=== PATIENT | male | born 1980 | race African-American/Black ===

== ENCOUNTER 2018-03-19 12:57 | Inpatient (IN) | payer MEDICAID, OTHER ==
[~2018-03-19] VITALS: Ht 182.9 cm; Wt 159.2 kg
[2018-03-19 14:45] LABS: Basophils # (auto) 0.1 uL; Basophils % (auto) 0.9 % (0.0-2.0); Eosinophils # (auto) 0 uL; Eosinophils % (auto) 0.2 % (0.0-7.0); Hematocrit 40.9 % (41.0-53.0); Hemoglobin 13.8 g/dL (13.5-17.5); Lymphocytes # (auto) 1.1 uL; Lymphocytes % (auto) 17.4 % (10.0-50.0); Mean Corpuscular Hgb Conc. 33.6 g/dL (32.0-36.0); Mean Corpuscular Volume 86.3 fL (80.0-100.0); Monocytes # (auto) 0.4 uL; Monocytes % (auto) 6.6 % (0.0-12.0); Neutrophils # (auto) 4.6 uL; Neutrophils % (auto) 74.9 % (37.0-80.0); Nucleated Red Blood Cells % 0.1 %; Platelet Count (auto) 239 10^3/uL (140-450); Red Blood Cells 4.74 10^6/uL (4.5-5.90); Red Cell Distribution Width 13.1 % (11.8-14.3); White Blood Cell 6.1 10^3/uL (4.4-10.8)
[2018-03-19 15:00] LABS: Albumin 3.4 g/dL (3.4-5.0); BUN/Creatinine Ratio 11.8; Bilirubin, Total 0.5 mg/dL (0.2-1.0); Calcium 8.6 mg/dL (8.5-10.1); Magnesium 2.1 mg/dL (1.6-2.6); Potassium 3.7 mmol/L (3.5-5.1)
[2018-03-19 15:03] LABS: Salicylate < 1.7 mg/dL (2.8-20.0)
[2018-03-19 15:15] LABS: Acetaminophen < 2.0 ug/mL (10-30)
[2018-03-19 15:29] LABS: Amphetamine Screen, Urine NEGATIVE (NEGATIVE); Barbiturate Scree,Urine NEGATIVE (NEGATIVE); Benzodiazephine Screen, Urine NEGATIVE (NEGATIVE); Cannabinoid Screen, Urine NEGATIVE (NEGATIVE); Cocaine Screen, Urine NEGATIVE (NEGATIVE); Opiate Scree,Urine NEGATIVE (NEGATIVE); Phencyclidine Screen, Urine NEGATIVE (NEGATIVE)
[2018-03-19 15:42] LABS: Urine Amorphous Crystal FEW /hpf (None Seen); Urine Bacteria FEW /hpf (None Seen); Urine Blood Negative /uL (Negative); Urine Mucus MODERATE (None Seen); Urine Specific Gravity 1.035 (1.001-1.035); Urine WBC 3 /hpf (0 - 3)
[2018-03-19] MEDS ORDERED: HYDROcodone-ACET 5/325MG TAB PO PRN (18:00)
[2018-03-19] MEDS ORDERED: MORPHINE SULF INJ 2 MG/ML SYRINGE 1ML IV PRN ×2 (18:00)
[2018-03-19] MEDS ORDERED: ONDANSETRON HCL 4 MG/2 ML VIAL IV PRN (18:00)
[2018-03-19] MEDS ORDERED: LORazepam 2MG/ML-1ML VIAL IV PRN (18:00)
[2018-03-19] MEDS ORDERED: DOCUSATE SOD 100 MG CAP PO PRN (18:00)
[2018-03-19] MEDS ORDERED: cefTRIAXone 1GM/10ml IVPUSH 10 ML IV ONE (18:00)
[2018-03-19] MEDS ORDERED: NITROGLYCERIN 0.4 MG SL TAB SL PRN (18:00)
[2018-03-19] MEDS ORDERED: DEXTROSE (50%) 50ML SYRG IV PRN (18:00)
[2018-03-19 21:45] VITALS: BP 125/74
[2018-03-19] MEDS: FAMOTIDINE 20 MG TAB PO SCH (21:57)
[2018-03-19] MEDS: SODIUM CHLOR 0.9% PF (SALINE LOCK) 10ML VIAL/SYR IV SCH (21:58)
[2018-03-19] MEDS: InsuLIN REG 1unit/0.01ml Soln (100units/ml) SC SCH (22:00)
[2018-03-19] MEDS: ACCU-CHEK COMFORT CURVE STRIP VI SCH (22:21)
[2018-03-20] MEDS ORDERED: CITA10TA59 PO (01:06)
[2018-03-20 05:28] VITALS: BP 138/87
[2018-03-20] MEDS: SODIUM CHLOR 0.9% PF (SALINE LOCK) 10ML VIAL/SYR IV SCH ×3 (06:29→21:09)
[2018-03-20] MEDS: InsuLIN REG 1unit/0.01ml Soln (100units/ml) SC SCH ×4 (06:29→21:10)
[2018-03-20] MEDS: ACCU-CHEK COMFORT CURVE STRIP VI SCH ×4 (06:29→21:09)
[2018-03-20 06:38] LABS: Basophils # (auto) 0.1 uL; Basophils % (auto) 1.1 % (0.0-2.0); Eosinophils # (auto) 0 uL; Eosinophils % (auto) 0.1 % (0.0-7.0); Hematocrit 38.6 % (41.0-53.0); Hemoglobin 12.9 g/dL (13.5-17.5); Lymphocytes # (auto) 1.3 uL; Lymphocytes % (auto) 23.3 % (10.0-50.0); Mean Corpuscular Hemoglobin 28.8 pg (28.0-32.0); Mean Corpuscular Hgb Conc. 33.4 g/dL (32.0-36.0); Mean Corpuscular Volume 86.5 fL (80.0-100.0); Monocytes # (auto) 0.6 uL; Monocytes % (auto) 10.2 % (0.0-12.0); Neutrophils # (auto) 3.6 uL; Neutrophils % (auto) 65.3 % (37.0-80.0); Nucleated Red Blood Cells % 0.2 %; Platelet Count (auto) 215 10^3/uL (140-450); Red Blood Cells 4.47 10^6/uL (4.5-5.90); Red Cell Distribution Width 13.3 % (11.8-14.3); White Blood Cell 5.5 10^3/uL (4.4-10.8)
[2018-03-20 07:03] LABS: Albumin 3.2 g/dL (3.4-5.0); BUN/Creatinine Ratio 11.8; Bilirubin, Total 0.4 mg/dL (0.2-1.0); Calcium 8.5 mg/dL (8.5-10.1); Potassium 3.5 mmol/L (3.5-5.1); Total Protein 7.5 g/dL (6.4-8.2)
[2018-03-20 07:30] VITALS: BP 134/85
[2018-03-20] MEDS: MULTIPLE VITAMIN TAB PO SCH (10:38)
[2018-03-20] MEDS: cefTRIAXone 1GM/10ml IVPUSH 10 ML IV SCH (10:38)
[2018-03-20] MEDS: FAMOTIDINE 20 MG TAB PO SCH ×2 (10:39→21:06)
[2018-03-20 12:41] VITALS: BP 131/63
[2018-03-20] MEDS ORDERED: METF-372 PO (14:26)
[2018-03-20 16:52] VITALS: BP 122/78
[2018-03-20] MEDS: metFORMIN HYDROCHLORIDE 500 MG TAB PO SCH (18:00)
[2018-03-20 22:00] VITALS: BP 127/66
[2018-03-21] VITALS (7 sets, daily range): BP systolic 113–126; BP diastolic 52–79
[2018-03-21] MEDS: SODIUM CHLOR 0.9% PF (SALINE LOCK) 10ML VIAL/SYR IV SCH ×3 (05:46→21:13)
[2018-03-21] MEDS: InsuLIN REG 1unit/0.01ml Soln (100units/ml) SC SCH ×4 (06:00→21:15)
[2018-03-21] MEDS: ACCU-CHEK COMFORT CURVE STRIP VI SCH ×4 (06:00→21:14)
[2018-03-21] MEDS: metFORMIN HYDROCHLORIDE 500 MG TAB PO SCH ×2 (06:08→17:35)
[2018-03-21 07:22] LABS: BUN/Creatinine Ratio 13.5; Calcium 8.2 mg/dL (8.5-10.1); Potassium 3.5 mmol/L (3.5-5.1)
[2018-03-21] MEDS: MULTIPLE VITAMIN TAB PO SCH (09:48)
[2018-03-21] MEDS: cefTRIAXone 1GM/10ml IVPUSH 10 ML IV SCH (09:48)
[2018-03-21] MEDS: FAMOTIDINE 20 MG TAB PO SCH ×2 (09:48→21:12)
[2018-03-21] MEDS: ACETAMINOPHEN 325 MG TAB PO PRN (21:12)
[2018-03-22] MEDS: ACETAMINOPHEN 325 MG TAB PO PRN (02:01)
[2018-03-22 05:00] VITALS: BP 115/62
[2018-03-22] MEDS: metFORMIN HYDROCHLORIDE 500 MG TAB PO SCH ×2 (05:46→17:54)
[2018-03-22] MEDS: SODIUM CHLOR 0.9% PF (SALINE LOCK) 10ML VIAL/SYR IV SCH ×3 (05:47→21:49)
[2018-03-22] MEDS: ACCU-CHEK COMFORT CURVE STRIP VI SCH ×4 (05:47→21:51)
[2018-03-22] MEDS: InsuLIN REG 1unit/0.01ml Soln (100units/ml) SC SCH ×4 (05:47→21:51)
[2018-03-22 09:00] VITALS: BP 130/80
[2018-03-22] MEDS: MULTIPLE VITAMIN TAB PO SCH (09:22)
[2018-03-22] MEDS: FAMOTIDINE 20 MG TAB PO SCH ×2 (09:22→21:49)
[2018-03-22 13:00] VITALS: BP 132/82
[2018-03-22 16:00] VITALS: BP 125/68
[2018-03-22 17:00] VITALS: BP_SYST 125; BP_SYST 138; BP_DIAS 68; BP_DIAS 88
[2018-03-22 22:00] VITALS: BP 121/78
[2018-03-23 05:00] VITALS: BP 111/73
[2018-03-23] MEDS: InsuLIN REG 1unit/0.01ml Soln (100units/ml) SC SCH ×4 (06:15→21:49)
[2018-03-23] MEDS: SODIUM CHLOR 0.9% PF (SALINE LOCK) 10ML VIAL/SYR IV SCH ×3 (06:16→21:44)
[2018-03-23] MEDS: ACCU-CHEK COMFORT CURVE STRIP VI SCH ×4 (06:16→21:49)
[2018-03-23] MEDS: metFORMIN HYDROCHLORIDE 500 MG TAB PO SCH ×2 (06:48→17:52)
[2018-03-23] MEDS: MULTIPLE VITAMIN TAB PO SCH (09:18)
[2018-03-23] MEDS: FAMOTIDINE 20 MG TAB PO SCH ×2 (09:18→21:44)
[2018-03-23 09:52] VITALS: BP 123/72
[2018-03-23 13:00] VITALS: BP 122/72
[2018-03-23 16:34] VITALS: BP 109/61
[2018-03-23 21:17] VITALS: BP 126/69
[2018-03-24] MEDS ORDERED: CALCIUM CARB 500 MG CHEW TAB PO ONE (04:30)
[2018-03-24 05:07] VITALS: BP 126/62
[2018-03-24] MEDS: SODIUM CHLOR 0.9% PF (SALINE LOCK) 10ML VIAL/SYR IV SCH ×3 (06:45→21:58)
[2018-03-24] MEDS: ACCU-CHEK COMFORT CURVE STRIP VI SCH ×4 (06:46→21:59)
[2018-03-24] MEDS: metFORMIN HYDROCHLORIDE 500 MG TAB PO SCH ×2 (06:46→17:31)
[2018-03-24] MEDS: InsuLIN REG 1unit/0.01ml Soln (100units/ml) SC SCH ×4 (06:46→21:59)
[2018-03-24 09:00] VITALS: BP 104/50
[2018-03-24] MEDS: FAMOTIDINE 20 MG TAB PO SCH ×2 (09:47→21:58)
[2018-03-24] MEDS: MULTIPLE VITAMIN TAB PO SCH (09:47)
[2018-03-24 13:00] VITALS: BP 120/61
[2018-03-24 17:00] VITALS: BP 132/87
[2018-03-24 21:33] VITALS: BP 121/65
[2018-03-25 05:00] VITALS: BP 123/69
[2018-03-25] MEDS: SODIUM CHLOR 0.9% PF (SALINE LOCK) 10ML VIAL/SYR IV SCH ×3 (06:30→22:23)
[2018-03-25] MEDS: metFORMIN HYDROCHLORIDE 500 MG TAB PO SCH ×2 (06:30→17:45)
[2018-03-25] MEDS: InsuLIN REG 1unit/0.01ml Soln (100units/ml) SC SCH ×4 (06:32→22:00)
[2018-03-25] MEDS: ACCU-CHEK COMFORT CURVE STRIP VI SCH ×4 (06:33→22:28)
[2018-03-25] MEDS: MULTIPLE VITAMIN TAB PO SCH (09:58)
[2018-03-25] MEDS: FAMOTIDINE 20 MG TAB PO SCH ×2 (09:58→22:22)
[2018-03-25 22:00] VITALS: BP 124/75
[2018-03-26 05:00] VITALS: BP 137/81
[2018-03-26] MEDS: SODIUM CHLOR 0.9% PF (SALINE LOCK) 10ML VIAL/SYR IV SCH ×3 (06:37→22:00)
[2018-03-26] MEDS: metFORMIN HYDROCHLORIDE 500 MG TAB PO SCH ×2 (06:37→18:15)
[2018-03-26] MEDS: ACCU-CHEK COMFORT CURVE STRIP VI SCH ×4 (06:38→22:00)
[2018-03-26] MEDS: InsuLIN REG 1unit/0.01ml Soln (100units/ml) SC SCH ×4 (06:38→22:00)
[2018-03-26 08:57] VITALS: BP 138/67
[2018-03-26] MEDS: MULTIPLE VITAMIN TAB PO SCH (10:17)
[2018-03-26] MEDS: FAMOTIDINE 20 MG TAB PO SCH ×2 (10:17→21:18)
[2018-03-26 13:18] VITALS: BP 133/83
[2018-03-26] MEDS: ACETAMINOPHEN 325 MG TAB PO PRN (14:07)
[2018-03-26 17:00] VITALS: BP 119/61
[2018-03-26 21:30] VITALS: BP 138/78
[2018-03-27] MEDS: SODIUM CHLOR 0.9% PF (SALINE LOCK) 10ML VIAL/SYR IV SCH ×3 (00:02→21:23)
[2018-03-27 04:53] VITALS: BP 132/84
[2018-03-27] MEDS: InsuLIN REG 1unit/0.01ml Soln (100units/ml) SC SCH ×4 (05:52→21:21)
[2018-03-27] MEDS: ACCU-CHEK COMFORT CURVE STRIP VI SCH ×4 (05:52→21:21)
[2018-03-27] MEDS: metFORMIN HYDROCHLORIDE 500 MG TAB PO SCH ×2 (06:17→17:46)
[2018-03-27] MEDS: ACETAMINOPHEN 325 MG TAB PO PRN ×2 (08:13→21:22)
[2018-03-27 09:00] VITALS: BP 134/75
[2018-03-27] MEDS: MULTIPLE VITAMIN TAB PO SCH (10:13)
[2018-03-27] MEDS: FAMOTIDINE 20 MG TAB PO SCH ×2 (10:13→21:21)
[2018-03-27] MEDS ORDERED: LORazepam 2MG/ML-1ML VIAL IV PRN (12:45)
[2018-03-27 13:00] VITALS: BP 133/87
[2018-03-27 17:00] VITALS: BP 142/72
[2018-03-27 21:30] VITALS: BP 126/65
[2018-03-28 05:00] VITALS: BP 140/78
[2018-03-28] MEDS: InsuLIN REG 1unit/0.01ml Soln (100units/ml) SC SCH ×4 (06:27→21:02)
[2018-03-28] MEDS: SODIUM CHLOR 0.9% PF (SALINE LOCK) 10ML VIAL/SYR IV SCH ×3 (06:27→21:01)
[2018-03-28] MEDS: ACCU-CHEK COMFORT CURVE STRIP VI SCH ×4 (06:27→21:02)
[2018-03-28] MEDS: metFORMIN HYDROCHLORIDE 500 MG TAB PO SCH ×2 (06:27→16:55)
[2018-03-28] MEDS: ACETAMINOPHEN 325 MG TAB PO PRN ×2 (08:25→16:58)
[2018-03-28] MEDS: ONDANSETRON ODT 4 MG TAB PO PRN (08:26)
[2018-03-28 08:49] VITALS: BP 130/81
[2018-03-28] MEDS: FAMOTIDINE 20 MG TAB PO SCH ×2 (09:35→21:02)
[2018-03-28] MEDS: MULTIPLE VITAMIN TAB PO SCH (09:35)
[2018-03-28 13:00] VITALS: BP 127/75
[2018-03-28 17:00] VITALS: BP 137/80
[2018-03-28 22:00] VITALS: BP 144/78
[2018-03-29] MEDS: ACETAMINOPHEN 325 MG TAB PO PRN (00:03)
[2018-03-29 04:57] VITALS: BP 131/77
[2018-03-29] MEDS: SODIUM CHLOR 0.9% PF (SALINE LOCK) 10ML VIAL/SYR IV SCH ×3 (06:00→21:46)
[2018-03-29] MEDS: metFORMIN HYDROCHLORIDE 500 MG TAB PO SCH ×2 (06:34→18:21)
[2018-03-29] MEDS: InsuLIN REG 1unit/0.01ml Soln (100units/ml) SC SCH ×4 (06:34→21:55)
[2018-03-29] MEDS: ACCU-CHEK COMFORT CURVE STRIP VI SCH ×4 (06:34→21:45)
[2018-03-29 09:05] VITALS: BP 129/62
[2018-03-29] MEDS: MULTIPLE VITAMIN TAB PO SCH (10:44)
[2018-03-29] MEDS: FAMOTIDINE 20 MG TAB PO SCH ×2 (10:45→21:45)
[2018-03-29 13:00] VITALS: BP 136/85
[2018-03-29 16:59] VITALS: BP 126/70
[2018-03-29 22:01] VITALS: BP 133/75
[2018-03-30 04:48] VITALS: BP 133/73
[2018-03-30] MEDS: SODIUM CHLOR 0.9% PF (SALINE LOCK) 10ML VIAL/SYR IV SCH ×3 (06:00→21:23)
[2018-03-30] MEDS: ACCU-CHEK COMFORT CURVE STRIP VI SCH ×4 (06:30→21:22)
[2018-03-30] MEDS: InsuLIN REG 1unit/0.01ml Soln (100units/ml) SC SCH ×4 (06:37→21:22)
[2018-03-30] MEDS: metFORMIN HYDROCHLORIDE 500 MG TAB PO SCH ×4 (06:37→21:24)
[2018-03-30 09:00] VITALS: BP 151/84
[2018-03-30] MEDS: FAMOTIDINE 20 MG TAB PO SCH ×2 (09:29→21:22)
[2018-03-30] MEDS: MULTIPLE VITAMIN TAB PO SCH (09:29)
[2018-03-30 13:00] VITALS: BP 142/78
[2018-03-30 17:00] VITALS: BP 136/88
[2018-03-30 20:00] VITALS: BP 158/86
[2018-03-30 21:36] VITALS: BP 158/86
[2018-03-31 05:31] VITALS: BP 146/84
[2018-03-31] MEDS: SODIUM CHLOR 0.9% PF (SALINE LOCK) 10ML VIAL/SYR IV SCH ×3 (06:00→22:14)
[2018-03-31] MEDS: InsuLIN REG 1unit/0.01ml Soln (100units/ml) SC SCH ×4 (06:53→22:00)
[2018-03-31] MEDS: ACCU-CHEK COMFORT CURVE STRIP VI SCH ×4 (06:53→22:15)
[2018-03-31] MEDS: metFORMIN HYDROCHLORIDE 500 MG TAB PO SCH ×2 (06:54→17:40)
[2018-03-31 08:00] VITALS: BP 119/78
[2018-03-31] MEDS: MULTIPLE VITAMIN TAB PO SCH (09:42)
[2018-03-31] MEDS: FAMOTIDINE 20 MG TAB PO SCH ×2 (09:42→22:15)
[2018-03-31 12:00] VITALS: BP 131/79
[2018-03-31 16:00] VITALS: BP 139/72
[2018-04-01 05:00] VITALS: BP 138/85
[2018-04-01] MEDS: SODIUM CHLOR 0.9% PF (SALINE LOCK) 10ML VIAL/SYR IV SCH ×3 (06:23→22:30)
[2018-04-01] MEDS: InsuLIN REG 1unit/0.01ml Soln (100units/ml) SC SCH ×4 (07:00→22:00)
[2018-04-01] MEDS: ACCU-CHEK COMFORT CURVE STRIP VI SCH ×4 (07:00→22:29)
[2018-04-01] MEDS: metFORMIN HYDROCHLORIDE 500 MG TAB PO SCH ×2 (07:55→18:14)
[2018-04-01 09:00] VITALS: BP 149/91
[2018-04-01] MEDS: FAMOTIDINE 20 MG TAB PO SCH ×2 (10:06→22:30)
[2018-04-01] MEDS: MULTIPLE VITAMIN TAB PO SCH (10:06)
[2018-04-01 12:00] VITALS: BP 140/88
[2018-04-01 17:12] VITALS: BP 160/100
[2018-04-01] MEDS ORDERED: TORSEMIDE 20 MG TAB PO SCH (18:00)
[2018-04-01 22:00] VITALS: BP 136/77
[2018-04-02 05:00] VITALS: BP 140/84
[2018-04-02] MEDS: SODIUM CHLOR 0.9% PF (SALINE LOCK) 10ML VIAL/SYR IV SCH ×3 (06:43→19:21)
[2018-04-02] MEDS: InsuLIN REG 1unit/0.01ml Soln (100units/ml) SC SCH ×4 (06:54→22:00)
[2018-04-02] MEDS: metFORMIN HYDROCHLORIDE 500 MG TAB PO SCH ×2 (06:54→17:45)
[2018-04-02] MEDS: ACCU-CHEK COMFORT CURVE STRIP VI SCH ×4 (06:54→22:15)
[2018-04-02 08:59] VITALS: BP 127/63
[2018-04-02] MEDS: MULTIPLE VITAMIN TAB PO SCH (09:37)
[2018-04-02] MEDS: FAMOTIDINE 20 MG TAB PO SCH ×2 (09:37→22:15)
[2018-04-02 13:00] VITALS: BP 144/78
[2018-04-02 17:01] VITALS: BP 146/73
[2018-04-02] MEDS: ACETAMINOPHEN 325 MG TAB PO PRN ×2 (19:42→22:15)
[2018-04-02 21:50] VITALS: BP 133/69
[2018-04-03] MEDS: metFORMIN HYDROCHLORIDE 500 MG TAB PO SCH ×2 (06:47→17:35)
[2018-04-03] MEDS: InsuLIN REG 1unit/0.01ml Soln (100units/ml) SC SCH ×4 (06:47→21:52)
[2018-04-03] MEDS: ACCU-CHEK COMFORT CURVE STRIP VI SCH ×4 (06:48→21:52)
[2018-04-03 09:00] VITALS: BP 157/98
[2018-04-03] MEDS: MULTIPLE VITAMIN TAB PO SCH (09:12)
[2018-04-03] MEDS: FAMOTIDINE 20 MG TAB PO SCH ×2 (09:12→21:51)
[2018-04-03 13:00] VITALS: BP 155/90
[2018-04-03] MEDS: SODIUM CHLOR 0.9% PF (SALINE LOCK) 10ML VIAL/SYR IV SCH ×2 (14:00→21:51)
[2018-04-03] MEDS: ACETAMINOPHEN 325 MG TAB PO PRN (15:22)
[2018-04-03] MEDS: ONDANSETRON ODT 4 MG TAB PO PRN (16:40)
[2018-04-03 17:27] VITALS: BP 152/99
[2018-04-03 21:59] VITALS: BP 146/82
[2018-04-04] MEDS: SODIUM CHLOR 0.9% PF (SALINE LOCK) 10ML VIAL/SYR IV SCH ×3 (00:22→21:45)
[2018-04-04 04:56] VITALS: BP 141/80
[2018-04-04] MEDS: InsuLIN REG 1unit/0.01ml Soln (100units/ml) SC SCH ×4 (07:00→21:44)
[2018-04-04] MEDS: ACCU-CHEK COMFORT CURVE STRIP VI SCH ×4 (07:03→21:45)
[2018-04-04] MEDS: metFORMIN HYDROCHLORIDE 500 MG TAB PO SCH ×2 (07:03→18:02)
[2018-04-04] MEDS: FAMOTIDINE 20 MG TAB PO SCH ×2 (08:48→21:45)
[2018-04-04] MEDS: MULTIPLE VITAMIN TAB PO SCH (08:48)
[2018-04-04 08:50] VITALS: BP 145/75
[2018-04-04 13:00] VITALS: BP 160/89
[2018-04-04 17:00] VITALS: BP 144/83
[2018-04-04 22:00] VITALS: BP 116/65
[2018-04-05 05:00] VITALS: BP 137/79
[2018-04-05] MEDS: SODIUM CHLOR 0.9% PF (SALINE LOCK) 10ML VIAL/SYR IV SCH (05:00)
[2018-04-05] MEDS: InsuLIN REG 1unit/0.01ml Soln (100units/ml) SC SCH (06:59)
[2018-04-05] MEDS: metFORMIN HYDROCHLORIDE 500 MG TAB PO SCH (06:59)
[2018-04-05] MEDS: ACCU-CHEK COMFORT CURVE STRIP VI SCH (07:06)
[2018-04-05 08:44] VITALS: BP 146/78
== END 2018-04-05 09:36 | DRG 812 ==
LOC: ER 13:19 → TELE 13:20 → TELE-WESTW 21:45 → WEST WING 03-28 20:28
PROVIDERS: ADMIT Internal Medicine; ATTEND Internal Medicine
DX: T43.222A Poisoning by selective serotonin reuptake inhibitors, intentional self-harm, initial encounter (principal); E66.01 Morbid (severe) obesity due to excess calories; X78.9XXA Intentional self-harm by unspecified sharp object, initial encounter; N39.0 Urinary tract infection, site not specified; F32.9 Major depressive disorder, single episode, unspecified; F41.9 Anxiety disorder, unspecified; S31.114A Laceration without foreign body of abdominal wall, left lower quadrant without penetration into peritoneal cavity, initial encounter; E11.9 Type 2 diabetes mellitus without complications; F43.10 Post-traumatic stress disorder, unspecified; Z91.5 Personal history of self-harm; Z82.49 Family history of ischemic heart disease and other diseases of the circulatory system; Z79.899 Other long term (current) drug therapy; Z68.42 Body mass index [BMI] 45.0-49.9, adult; Y93.89 Activity, other specified; Y92.89 Other specified places as the place of occurrence of the external cause; Y99.8 Other external cause status
CPT/HCPCS: 36415; 71045; 80048; 80053; 80061; 80307; 80320; 80329; 81001; 82962; 83036; 83735; 84443; 85025; 87081; 87086; 93005; 94761; 96374; 99291; A6257; J0696; Q0162

== ENCOUNTER 2025-04-07 11:35 | Inpatient (IN) | payer OTHER, MEDICAID ==
[~2025-04-07] VITALS: Ht 177.8 cm; Wt 169.0 kg
[~2025-04-07 11:35] MED LIST: CITA10TA8 PO; METF-372 PO
--- NOTE | 2025-04-07 12:07 | ED.PDOC ---
HPI Comments 45y M history of type 2 diabetes, hypertension, dyslipidemia and cardiac disease who presents to the ED for chief complaint of chest pain. Pt states he has been having L sided chest pain since the past 4 days. Pt states the pain is intermittent, radiating to the L upper back, pressure like in nature, with noted shortness of breath, nausea and dyspnea on exertion, and no relieving factors. Pt states he was seen by math and physics instructor recently and told he has "weak heart." Pt also states he hit his R big toe 3 days prior while helping move a couch and states he had noted bleeding at the time but since then bleeding as resolved. Pt states he wants to be evaluated for any possible wound on the R big toe due to history of DM. Pt in the ED, otherwise has noted BP of 145/83 and 02 sat of 93% on room air but otherwise has stable vitals of RR 20 and heart rate of 80. Pt otherwise denies any other symptoms at this time. Pt has noted history of DM, HTN, HLD and 2x prior CVA's. Chief Complaint: Chest Pain Time Seen by MD: 12:03 Primary Care Provider: NONE Reviewed Notes: Medications, Allergies Allergies: Coded Allergies: NO KNOWN ALLERGIES (Unverified , 03/19/18) Home Meds Active Scripts Metformin Hydrochloride (Metformin Hcl) 1,000 Mg Tab, 1 TAB PO BID, #60 TAB Prov:BRIAN LOWE MD 03/20/18 Reported Medications Citalopram Hydrobromide (Celexa) 10 Mg Tab, 20 MG PO DAILY, TAB 03/20/18 Information Source: Patient Mode of Arrival: Ambulatory Past Medical History PAST MEDICAL HISTORY: Anxiety, Depression, DM, High Lipids, HTN Past Medical History (Other): Heart disease, CVA, Morbid obesity Family History Family History: No family hx of HTN Social History Smoker: Non-Smoker Alcohol: Rarely Drugs: Denies Drug Use Lives In: Home All Other Systems: Reviewed and Negative (see HPI) Physical Exam General Appearance: No Apparent Distress, Obese HEENT: Other (Pupils and face symmetric. Moist mucous membranes.) Neck: Full Range of Motion, Normal Inspection Respiratory: Lungs Clear, No Accessory Muscle Use, No Respiratory Distress, Normal Breath Sounds Cardiovascular: No Edema, No JVD, Regular Rate/Rhythm Breast Exam: Deferred Gastrointestinal: Non Tender, Soft Genitalia: Deferred Pelvic: Deferred Rectal: Deferred Extremities: Non-tender (Right great toe dried blood under nail with minimal erythema of the tip of the toe. No tenderness, edema or discharge.), No pedal edema, Other Neurologic: Alert (Oriented x4), Normal Affect, Normal Mood, Other (Ambulatory with cane) Cerebellar Function: NOT DONE Reflexes: NOT DONE Skin: Dry, Normal Color, Warm Lymphatic: NOT DONE EKG EKG : Comments Sinus rhythm, rate 83, normal intervals, left axis deviation, old anteroseptal infarct, lateral T inversion Was a procedure done? Was a procedure done?: No CP Differential Dx Differential Diagnosis: Angina, Anxiety / Panic Attack, Electrolyte Disorder, Heart Failure, UT, Pulmonary Embolus Differential Diagnosis: CHF Differential Diagnosis: Angina, Chest Wall Pain, Esophageal reflux/spasm, Gastritis, Myocardial Infarction, Pericarditis, Pneumonia X-Ray, Labs, Meds, VS Vital Signs Date Time Temp Pulse Resp B/P (MAP) Pulse Ox O2 Delivery O2 Flow Rate FiO2 04/07/25 11:41 80 20 145/83 93 04/07/25 11:39 83 Lab Test 04/07/25 14:05 04/07/25 13:10 Range/Units Troponin I High Sensitivity Pending 6 </=54 ng/L White Blood Count 4.5 4.4-10.8 10^3/uL Red Blood Count 5.19 4.5-5.90 10^6/uL Hemoglobin 14.1 13.5-17.5 g/dL Hematocrit 42.7 41.0-53.0 % Mean Corpuscular Volume 82.2 80.0-100.0 fL Mean Corpuscular Hemoglobin 27.2 L 28.0-32.0 pg Mean Corpuscular Hemoglobin Concent 33.1 32.0-36.0 g/dL Red Cell Distribution Width 14.8 H 11.8-14.3 % Platelet Count 200 140-450 10^3/uL Mean Platelet Volume 11.1 H 6.9-10.8 fL Neutrophils (%) (Auto) 69.8 37.0-80.0 % Lymphocytes (%) (Auto) 21.7 10.0-50.0 % Monocytes (%) (Auto) 7.3 0.0-12.0 % Eosinophils (%) (Auto) 0.8 0.0-7.0 % Basophils (%) (Auto) 0.4 0.0-2.0 % Neutrophils # (Auto) 3.1 1.6-8.6 10 ^3/uL Lymphocytes # (Auto) 1.0 0.4-5.4 10 ^3/uL Monocytes # (Auto) 0.3 0-1.3 10 ^3/uL Eosinophils # (Auto) 0 0-0.8 10 ^3/uL Basophils # (Auto) 0 0-0.2 10 ^3/uL Nucleated Red Blood Cells 0.1 % Sodium Level 143 136-145 mmol/L Potassium Level 4.1 3.5-5.1 mmol/L Chloride Level 105 98-107 mmol/L Carbon Dioxide Level 29 20-31 mmol/L Anion Gap 9 5-15 Blood Urea Nitrogen 17 9-23 mg/dL Creatinine 1.08 0.700-1.30 mg/dL Glomerular Filtration Rate Calc 85 >90 mL/min BUN/Creatinine Ratio 15.7 10.0-20.0 Serum Glucose 113 H 74-106 mg/dL Calcium Level 9.1 8.7-10.4 mg/dL B-Type Natriuretic Peptide 44.59 0-100 pg/mL [place] [address] Ph: [phone] DIAGNOSTIC IMAGING Diagnostic Imaging Report : [id number] Signed PATIENT: KRYSTEN GARCIA ACCT: [id number] UNIT: [id number] : 1980 LOC: ER ROOM / BED: / AGE / SEX: 45 / M ADM STATUS: REG ER SERVICE 1149 ORDERING PHYSICIAN: KITTY CHRISTINE MD PROCEDURE(s): RFOOT - R FOOT 3 VIEW XRAY REASON: r great toe injury/pain ORDER NUMBER(s): [id number], ACCESSION NUMBER(s): [id number] CLINICAL INDICATION: r great toe injury/pain TECHNIQUE: XY R FOOT 3 VIEW XRAY Comparison: None FINDINGS/IMPRESSION: : There is no evidence of acute fracture or dislocation. Soft tissues are unremarkable. Degenerative spurring of the calcaneus. ATED BY: NOLAN CARDOZA MD DICTATED DATE/TIME: 04/07/251225 SIGNED BY: NOLAN CARDOZA MD SIGNED DATE/TIME: 04/07/251225 CC: [place] [address] Ph: [phone] DIAGNOSTIC IMAGING Diagnostic Imaging Report : [id number] Signed PATIENT: KRYSTEN GARCIA ACCT: [id number] UNIT: [id number] : 1980 LOC: ER ROOM / BED: / AGE / SEX: 45 / M ADM STATUS: REG ER SERVICE 1149 ORDERING PHYSICIAN: KITTY CHRISTINE MD PROCEDURE(s): CXRP - CHEST PORTABLE REASON: cp ORDER NUMBER(s): [id number], ACCESSION NUMBER(s): [id number] EXAM: XY CHEST PORTABLE HISTORY: cp COMPARISON: None TECHNIQUE: Portable AP view of the chest was performed. FINDINGS: No pneumothorax, consolidative infiltrates, or pulmonary edema. The heart is mildly enlarged. There is thoracic degenerative disc disease. IMPRESSION: Cardiomegaly without evidence of acute intrathoracic process. ATED BY: MABEL MICHAEL MD DICTATED DATE/TIME: 04/07/251217 SIGNED BY: MABEL MICHAEL MD SIGNED DATE/TIME: 04/07/251217 CC: X-Ray, Labs, Meds, VS Comment 45-year-old male with a history of hypertension, diabetes, dyslipidemia, heart disease and morbid obesity complaining of chest pain radiating to the back, associated with shortness of breath and dyspnea on exertion Vitals remarkable for BP 145/83, oxygen saturation 93% on room air Rhythm strip independently interpreted by me: Sinus rhythm, rate 83, no ectopy. Chest x-ray cardiomegaly Right foot x-rays unremarkable CBC, basic metabolic panel, BNP and 1st troponin unremarkable Patient treated with the following in the ED: Aspirin 325 mg p.o., nitro bid 1/2 inch to chest wall. On re-evaluation, pain is improved. Vitals were stable. Heart score is 5 Plan is to admit the patient for Cardiology evaluation. Time of 1ST Reevaluation: 14:39 Reevaluation 1ST: Improved Patient Education/Counseling: Diagnosis, Treatment Family Education/Counseling: No Family Present SEPSIS Sepsis Screen Date sepsis recognized/suspect: Apr 07, 2025 Time Sepsis recognized/suspect: 1134 Recent Procedure: No On Antibiotic Therapy: No Respiratory Rate >20: No Heart Rate >90: No Temp<36 C (96.8 F) or >38.3 C: No SBP <90 or MAP <65 mmHG: No New Acute Mental Status Change: No Is the patient on CPAP, BIPAP,: No Physician Orders Chest Portable (04/07/25 11:49) Urinalysis (04/07/25 11:49) Electrocardigram (04/07/25 11:49) R Foot 3 View Xray (04/07/25 11:49) Troponin-I Hs (04/07/25 12:49) Troponin-I Hs (04/07/25 14:49) Electrocardigram (04/07/25 12:49) Electrocardigram (04/07/25 14:49) Vital Signs Date Time Temp Pulse Resp B/P (MAP) Pulse Ox O2 Delivery O2 Flow Rate FiO2 04/07/25 11:41 80 20 145/83 93 04/07/25 11:39 83 Laboratory Tests Test 04/07/25 13:10 White Blood Count 4.5 10^3/uL (4.4-10.8) Departure 1 Departure Time of Disposition: 14:30 Impression: Primary Impression: Chest pain with high risk for cardiac etiology Additional Impression: Contusion of right great toe without damage to nail Qualified Codes: S90.111A - Contusion of right great toe without damage to nail, initial encounter Disposition: ADMITTED INPATIENT Condition: Stable Critical Care Note Critical Care Time?: No Stability Stability form required: No Heart Score Heart Score: Heart Score Response (Comments) Value History Moderate Suspicious 1 EKG Repolarization Disturb 1 Age 45-64 1 Risk Factors >3 or Hx ASHD 2 Troponin Normal limit 0 Total 5 I personally scribed for KITTY CHRISTINE MD ([email or web address]) on 04/07/25 at 12:07. Electronically submitted by Maryse Gaston ([facility] I personally scribed for KITTY CHRISTINE MD ([email or web address]) on 04/07/25 at 12:51. Electronically submitted by Maryse Gaston ([email or web address]). KITTY CHRISTINE MD Apr 07, 2025 12:07
--- NOTE | 2025-04-07 12:20 | DVH ---
EXAM: XY CHEST PORTABLE HISTORY: cp COMPARISON: None TECHNIQUE: Portable AP view of the chest was performed. FINDINGS: No pneumothorax, consolidative infiltrates, or pulmonary edema. The heart is mildly enlarged. There i s thoracic degenerative disc disease. IMPRESSION: Cardiomegaly without evidence of acute intrathoracic process.
--- NOTE | 2025-04-07 12:28 | DVH ---
CLINICAL INDICATION: r great toe injury/pain TECHNIQUE: XY R FOOT 3 VIEW XRAY Comparison: None FINDINGS/IMPRESSION: : There is no evidence of acute fracture or dislocation. Soft tissues are unremarkable. Degenerative spurring of the calcaneus.
[2025-04-07 13:46] LABS: Hematocrit 42.7 % (41.0-53.0); Hemoglobin 14.1 g/dL (13.5-17.5); Mean Corpuscular Hemoglobin 27.2 pg (28.0-32.0); Mean Corpuscular Volume 82.2 fL (80.0-100.0); Nucleated Red Blood Cells % 0.1 %
[2025-04-07 13:56] LABS: Chloride 105 mmol/L (98-107); Potassium 4.1 mmol/L (3.5-5.1); Sodium 143 mmol/L (136-145)
[2025-04-07 13:57] LABS: Anion Gap 9 (5-15); Calcium 9.1 mg/dL (8.7-10.4); Carbon Dioxide 29 mmol/L (20-31)
[2025-04-07 14:02] LABS: BUN/Creatinine Ratio 15.7 (10.0-20.0); Blood Urea Nitrogen 17 mg/dL (9-23); Glucose 113 mg/dL (74-106)
[2025-04-07] MEDS: NITROGLYCERIN 2% OINT 1GM PKG TD ONE (14:52)
[2025-04-07] MEDS ORDERED: ACETAMINOPHEN 325 MG TAB PO PRN (19:30)
[2025-04-07] MEDS ORDERED: NITROGLYCERIN 0.4 MG SL TAB SL PRN (19:30)
[2025-04-07] MEDS ORDERED: MORPHINE SULFATE INJ 2 MG/ml SYRG IV PRN (19:30)
[2025-04-07] MEDS ORDERED: DEXTROSE (50%) 50ML SYRG IV PRN (19:30)
[2025-04-07] MEDS: InsuLIN REG 1unit/0.01ml Soln (100units/ml) SC SCH (22:00)
[2025-04-07] MEDS: ACCU-CHEK COMFORT CURVE STRIP VI SCH (22:00)
[2025-04-07] MEDS: ATORVASTATIN 20 MG TAB PO SCH (22:00)
[2025-04-07] MEDS: CARVEDILOL 12.5 MG TAB PO SCH (22:00)
[2025-04-07 22:30] VITALS: BP 115/66; PULSE 97; RESP 18; TEMP 98.2; O2SAT 94
[2025-04-07] MEDS ORDERED: ATOR-47 PO (22:56)
[2025-04-07] MEDS ORDERED: CLOP75TA70 PO (22:56)
[2025-04-07] MEDS ORDERED: VALS1TAB59 PO (22:56)
[2025-04-07] MEDS ORDERED: CARV12.544 PO (22:56)
[2025-04-07] MEDS ORDERED: GLIP10TA9 PO (22:56)
[2025-04-07] MEDS ORDERED: ASPI-325 PO (22:56)
[2025-04-08] VITALS (7 sets, daily range): BP systolic 130–172; BP diastolic 75–101; PULSE 72–98; RESP 16–18; TEMP 97.5–98; O2SAT 96–98
--- NOTE | 2025-04-08 00:15 | ECG ---
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
--- NOTE | 2025-04-08 04:02 | DVHHP2 ---
History of Present Illness Reason for Visit: Chest pain History of Present Illness 45-year-old male presents for evaluation of chest pain. Patient reports a four day history of left-sided pressure-like pain that radiates to his left upper back with associated shortness for breath and nausea. Denies cough or fever. No other acute complaints reported. Past Medical History Dyslipidemia, hypertension, diabetes mellitus, CVA Past Surgical History Denies Family History Noncontributory Smoke: No ALCOHOL: occassional Drugs: None Lives: with Family Review of Systems Review of Systems Review of systems are currently negative otherwise addressed in HPI. Allergies: Coded Allergies: NO KNOWN ALLERGIES (Unverified , 03/19/18) Medications Current Medications Medications Dose Ordered Sig/Ryley Route Start Time Stop Time Status Last Admin Dose Admin Aspirin 81 mg DAILY PO 04/08/25 10:00 Atorvastatin Calcium 80 mg HS PO 04/07/25 22:00 Carvedilol 12.5 mg BIDWM PO 04/07/25 22:00 Valsartan 320 mg DAILY PO 04/08/25 10:00 Clopidogrel Bisulfate 75 mg DAILY PO 04/08/25 10:00 Diagnostic Test (Pha) 1 strip ACHS 04/07/25 22:00 04/07/25 22:00 1 STRIP Insulin Human Regular ACHS SC 04/07/25 22:00 Dextrose 50 ml UD PRN IV 04/07/25 19:30 Ondansetron HCl 4 mg Q4HP PRN IV 04/07/25 19:30 Acetaminophen 650 mg Q6HP PRN PO 04/07/25 19:30 Nitroglycerin 0.4 mg Q5MINP PRN SL 04/07/25 19:30 Morphine Sulfate 2 mg Q30M PRN IV 04/07/25 19:30 Exam Vital Signs Vital Signs Date Time Temp Pulse Resp B/P (MAP) Pulse Ox O2 Delivery O2 Flow Rate FiO2 04/07/25 22:30 98.2 97 18 115/66 (82) 94 98.2 04/07/25 21:32 Room Air Exam Gen: 45-year-old male in mild distress, morbidly obese Skin: Warm, dry, normal color and texture, no rash. HEENT: Normocephalic atraumatic, mucous membranes moist and pink. Neck: Cervical and supraclavicular nodes normal without enlargement, trachea is midline, thyroid gland is normal without masses. Pulmonary: Clear to auscultation and percussion bilaterally. Cardiac: Regular rate and rhythm. No murmur Abdomen: Soft, nontender, nondistended, bowel sounds present all 4 quadrants, no guarding, no rigidity, no organomegaly. Extremities: No cyanosis, clubbing, no edema Neuro: Cranial nerves II through XII grossly intact, normal affect and speech, no focal motor deficits. Labs/Xrays ORDERING PHYSICIAN: KITTY CHRISTINE MD PROCEDURE(s): CXRP - CHEST PORTABLE REASON: cp ORDER NUMBER(s): [id number], ACCESSION NUMBER(s): [id number] EXAM: XY CHEST PORTABLE HISTORY: cp COMPARISON: None TECHNIQUE: Portable AP view of the chest was performed. FINDINGS: No pneumothorax, consolidative infiltrates, or pulmonary edema. The heart is mildly enlarged. There is thoracic degenerative disc disease. IMPRESSION: Cardiomegaly without evidence of acute intrathoracic process. Labs Test 04/07/25 22:39 04/07/25 14:05 04/07/25 13:10 Range/Units POC Glucose 125 H 70-106 mg/dl Troponin I High Sensitivity 5 </=54 ng/L White Blood Count 4.5 4.4-10.8 10^3/uL Red Blood Count 5.19 4.5-5.90 10^6/uL Hemoglobin 14.1 13.5-17.5 g/dL Hematocrit 42.7 41.0-53.0 % Mean Corpuscular Volume 82.2 80.0-100.0 fL Mean Corpuscular Hemoglobin 27.2 L 28.0-32.0 pg Mean Corpuscular Hemoglobin Concent 33.1 32.0-36.0 g/dL Red Cell Distribution Width 14.8 H 11.8-14.3 % Platelet Count 200 140-450 10^3/uL Mean Platelet Volume 11.1 H 6.9-10.8 fL Neutrophils (%) (Auto) 69.8 37.0-80.0 % Lymphocytes (%) (Auto) 21.7 10.0-50.0 % Monocytes (%) (Auto) 7.3 0.0-12.0 % Eosinophils (%) (Auto) 0.8 0.0-7.0 % Basophils (%) (Auto) 0.4 0.0-2.0 % Neutrophils # (Auto) 3.1 1.6-8.6 10 ^3/uL Lymphocytes # (Auto) 1.0 0.4-5.4 10 ^3/uL Monocytes # (Auto) 0.3 0-1.3 10 ^3/uL Eosinophils # (Auto) 0 0-0.8 10 ^3/uL Basophils # (Auto) 0 0-0.2 10 ^3/uL Nucleated Red Blood Cells 0.1 % Sodium Level 143 136-145 mmol/L Potassium Level 4.1 3.5-5.1 mmol/L Chloride Level 105 98-107 mmol/L Carbon Dioxide Level 29 20-31 mmol/L Anion Gap 9 5-15 Blood Urea Nitrogen 17 9-23 mg/dL Creatinine 1.08 0.700-1.30 mg/dL Glomerular Filtration Rate Calc 85 >90 mL/min BUN/Creatinine Ratio 15.7 10.0-20.0 Serum Glucose 113 H 74-106 mg/dL Calcium Level 9.1 8.7-10.4 mg/dL B-Type Natriuretic Peptide 44.59 0-100 pg/mL SEPSIS Sepsis Screen Date sepsis recognized/suspect: Apr 07, 2025 Time Sepsis recognized/suspect: 2137 Recent Procedure: No On Antibiotic Therapy: No Respiratory Rate >20: No Heart Rate >90: Yes Temp<36 C (96.8 F) or >38.3 C: No SBP <90 or MAP <65 mmHG: No New Acute Mental Status Change: No Is the patient on CPAP, BIPAP,: No Vital Signs Date Time Temp Pulse Resp B/P (MAP) Pulse Ox O2 Delivery O2 Flow Rate FiO2 04/07/25 22:30 98.2 97 18 115/66 (82) 94 98.2 04/07/25 21:32 97 20 97 Room Air 04/07/25 21:32 98.7 97 20 120/70 (87) 96 98.7 Medications Medications Dose Ordered Sig/Ryley Route Start Time Stop Time Status Last Admin Dose Admin Diagnostic Test (Pha) 1 strip ACHS 04/07/25 22:00 04/07/25 22:00 1 STRIP Assessment/Plan Assessment/Plan Assessment Chest pain rule out ACS Diabetes mellitus Hypertension Morbid obesity Plan Admit the patient to telemetry to the hospitalist Echocardiogram pending Resume home medications Continue treatment per orders. Plan discussed with: Patient My Orders Orders - SHERITA JOYNER Procedure Category Date Status Time Aspirin Tablet PHA 04/08/25 In Process 10:00 Atorvastatin (Lipitor) PHA 04/07/25 In Process 22:00 Carvedilol Tablet PHA 04/07/25 In Process (Coreg Tablet) 22:00 Valsartan (Diovan) PHA 04/08/25 In Process 10:00 Clopidogrel Bisulfate PHA 04/08/25 In Process (Plavix) 10:00 Consistent DIET 04/08/25 Transmitted Carb(Ccho)Diabetes Breakfast Basic Metabolic Panel LAB 04/08/25 Logged 04:00 Glucose Blood PHA 04/07/25 In Process (Accu-Chek Comfort 22:00 Insulin R (Human) PHA 04/07/25 In Process (Insulin R) 22:00 Dextrose 50% Syringe PHA 04/07/25 In Process 19:30 Admit ADMIT 04/07/25 Transmitted 19:20 Ondansetron Hcl PHA 04/07/25 In Process (Zofran) 19:30 Echo 2d Mode Cardiac US 04/07/25 Logged DOP 19:20 Condition: Fair JOSE J 04/07/25 In Process 19:20 Acetaminophen Tablet PHA 04/07/25 In Process (Tylenol Tablet) 19:30 Bedrest With Bathroom JOSE J 04/07/25 In Process Privileg 19:20 Nitroglycerin PHA 04/07/25 In Process Sublingual (Ntrostat 19:30 Morphine Sulfate PHA 04/07/25 In Process Injection 19:30 Stat Ekg For Chest JOSE J 04/07/25 In Process Pain 19:20 Notify Md Of Changes JOSE J 04/07/25 In Process From Base 19:20 Fleecer For JOSE J 04/07/25 In Process 24 Hours 19:20 Emergency Dysrhythmia JOSE J 04/07/25 In Process Protocol 19:20 Rhythm Strips Once JOSE J 04/07/25 In Process Every Shift 19:20 Oxygen By Nasal RT 04/07/25 Transmitted Cannula 19:20 Date of Service: Apr 07, 2025 Billing Provider: SHERITA JOYNER Common Visit Codes: [id number] INP/OBS CARE (HIGH) SHERITA JOYNER Apr 08, 2025 04:02
[2025-04-08 08:04] LABS: Chloride 107 mmol/L (98-107); Potassium 3.9 mmol/L (3.5-5.1); Sodium 143 mmol/L (136-145)
[2025-04-08 08:05] LABS: Anion Gap 9 (5-15); Calcium 9.3 mg/dL (8.7-10.4); Carbon Dioxide 27 mmol/L (20-31)
[2025-04-08 08:10] LABS: BUN/Creatinine Ratio 19.7 (10.0-20.0); Blood Urea Nitrogen 23 mg/dL (9-23); Glucose 98 mg/dL (74-106)
[2025-04-08 08:25] LABS: Triglycerides 89 mg/dL (< 150)
[2025-04-08 08:27] LABS: Cholesterol 114 mg/dL (< 200)
[2025-04-08 08:28] LABS: HDL Cholesterol 27 mg/dL (40-59)
--- NOTE | 2025-04-08 10:39 | DVHPN2 ---
Subjective The patient is seen and examined at bedside. The patient is still complain of chest pain. Reviewed: Care Plan, H&P, Labs, Medications, Previous Orders, Radiology Changes from previous H/P or p: No Changes Objective Vitals Vital Signs Date Time Temp Pulse Resp B/P (MAP) Pulse Ox O2 Delivery O2 Flow Rate FiO2 04/08/25 08:43 97.7 72 18 130/84 (99) 96 97.7 04/07/25 21:32 Room Air General Appearance: Alert, Oriented X3, Cooperative, No acute distress HEENT: Atraumatic, PERRLA, EOMI, Mucous membr. moist/pink Neck: Supple Lungs: Clear to auscultation, Normal air movement Cardiovascular: Regular rate, Normal S1, Normal S2, No murmurs, Gallops, Rubs Abdomen: Normal bowel sounds, Soft, No tenderness Neuro: Other (Right hemiparesis due to history of CVA) Psych/Mental Status: Mental status NL Medications Current Medications Medications Dose Ordered Sig/Ryley Route Start Time Stop Time Status Last Admin Dose Admin Aspirin 81 mg DAILY PO 04/08/25 10:00 Atorvastatin Calcium 80 mg HS PO 04/07/25 22:00 Carvedilol 12.5 mg BIDWM PO 04/07/25 22:00 Valsartan 320 mg DAILY PO 04/08/25 10:00 Clopidogrel Bisulfate 75 mg DAILY PO 04/08/25 10:00 Diagnostic Test (Pha) 1 strip ACHS 04/07/25 22:00 04/08/25 06:04 1 STRIP Insulin Human Regular ACHS SC 04/07/25 22:00 Dextrose 50 ml UD PRN IV 04/07/25 19:30 Ondansetron HCl 4 mg Q4HP PRN IV 04/07/25 19:30 Acetaminophen 650 mg Q6HP PRN PO 04/07/25 19:30 Nitroglycerin 0.4 mg Q5MINP PRN SL 04/07/25 19:30 Morphine Sulfate 2 mg Q30M PRN IV 04/07/25 19:30 Laboratory Results Laboratory Tests 04/07/25 13:10 04/08/25 07:24 Chemistry Test 04/07/25 13:10 04/08/25 07:24 Calcium Level 9.1 mg/dL (8.7-10.4) 9.3 mg/dL (8.7-10.4) Lipid panel Test 04/08/25 07:24 Cholesterol Level 114 mg/dL (< 200) HDL Cholesterol 27 mg/dL (40-59) L Triglycerides Level 89 mg/dL (< 150) Cardiac Markers Test 04/07/25 13:10 B-Type Natriuretic Peptide 44.59 pg/mL (0-100) HgA1c, TSH Test 04/08/25 07:24 Thyroid Stimulating Hormone (TSH) 1.41 uIU/mL (0.55-4.78) Labs and/or images reviewed: Labs reviewed by me Assessment/Plan Assessment/Plan Chest pain possible secondary to unstable angina Diabetes mellitus Hypertension Morbid obesity History of CVA with right-sided hemiparesis Continuing current management Continuing with sliding scale insulin Because the patient is still have chest pain and history of CVA, no workup at [place] one week ago accepted echo, I am going to consult Cardiology. Continuing hypertensive medication. We will add hydralazine 10 mg IV q.6 hours p.r.n. for systolic greater than 160 or diastolic greater than 100 This medical document was created using an electronic medical record system with [employer] direct computerized dictation system. Although this document has been carefully reviewed, there may still be some phonetic and typographical errors. These areas are purely typographical due to imperfections of the software programs, and do not reflect any compromise in the patient's medical care. Plan discussed with: Patient, Other (RN) Date of Service: Apr 08, 2025 Billing Provider: DANN SOTO MD Common Visit Codes: [id number] INP/OBS CARE(HIGH) DANN SOTO MD Apr 08, 2025 10:39
[2025-04-08] MEDS: CLOPIDOGREL BISULFATE 75 MG TAB PO SCH (10:40)
[2025-04-08] MEDS: VALSARTAN 80 MG TAB PO SCH (10:41)
[2025-04-08] MEDS ORDERED: INSU100I70 SC (10:44)
--- NOTE | 2025-04-08 13:08 | DVHSR ---
APPROVED REPORT EXAM: Two-dimensional and M-mode echocardiogram with Doppler and color Doppler. Blood Pressure: 147/75 mmHg INDICATION Chest Pain RISK FACTORS Height: 70, Weight: 373 DIMENSIONS LVDd4.5 (3.8-5.7cm)LA (2D)4.8 (1.9-4.0cm)Aortic Root4.1 (2.0-3.7cm) LVDs3.1 (2.5-4.0cm)LA (MM) (1.9-4.0cm)Aortic Cusp Exc2.3 (1.5-2.0cm) EF (%) 60.0 (55-70%)Rt. Atrium (1.9-4.0cm)Asc. Aorta cm Mitral Valve MitralMitral Stenosis E wave0.60m/sMV Mean GR.mmHg A wave0.78m/sMV Peak GR.mmHg E/A ratio0.82D MVAcm2 DECEL [id number] 1/2 [id number] IVRTmsDop MVA4.54cm2 Aortic Valve Aortic ValveAortic Stenosis V11.15m/[place] Mean GR.3mmHg V21.20m/[place] Peak GR.6mmHg LVOT Diameter2.4 (1.8-2.4cm)Doppler AVA4.33cm2 Pulmonic Valve V20.93m/s Conclusion lvef 45% apex is hypokinetic mild lvh left atrium enlarged no severe valve abnormalities noted
[2025-04-08] MEDS: hydrALAZINE HCL 20 MG/ML VL IV PRN (14:23)
--- NOTE | 2025-04-08 16:07 | DVHINCON2 ---
Date Seen: Apr 08, 2025 Referring Physician MD Yokasta Reason for Consultation Chest pain History of Present Illness This is a 45-year-old man who presented to the emergency room with a chief complaint of chest pain since April 03, 2025. Describes his chest pain as left-sided, radiating to the left upper back, pressure-like, non provoked, intermittent, and associated with shortness of breath. The patient reports he had an admission to [facility] on June, where he was told he had a borderline weak heart. He does not recall undergoing any cardiac workup including stress test or cardiac catheterization. At that time, he was diagnosed with an acute CVA for which he was placed on dual-antiplatelet therapy. Serial troponin levels are negative. A 12 lead electrocardiogram revealed nonspecific lateral T-wave inversion. Significant medical history includes unspecified congestive heart failure, CVAs x2 with right-sided hemiparesis, insulin-dependent diabetes mellitus, hypertension, dyslipidemia, bilateral eye cataracts, and morbid obesity. Past Medical History Past medical history reviewed. No other significant than mentioned above. Past Surgical History Denies any past surgical history. Family History: Anxiety disorder cousins Cardiovascular disease grandpa Cervical cancer grandma Diabetes mellitus aunt FH: alcohol abuse grandma FH: bipolar disorder grandpa FH: depression cousins FH: heart attack grandpa FH: mental illness grandma FH: stroke aunt FH: throat cancer uncle Fibromyalgia G8 MOTHER G8 BROTHER Glaucoma aunt Hypercholesterolemia aunt Hypertension aunt Osteoarthritis G8 MOTHER Seizure disorder G8 BROTHER aunt Family History Family history reviewed. Social History Denies the use of illicit drugs, alcohol, or tobacco use. Allergies: Coded Allergies: NO KNOWN ALLERGIES (Unverified , 03/19/18) Home Meds Reported Medications Insulin Glargine-Yfgn (Insulin Glargine) 100 Unit/Ml Inj, 25 UNIT SC DAILY, INJ 04/08/25 Clopidogrel Bisulfate (CLOPIDOGREL) 75 Mg Tab, 1 TAB PO DAILY 04/07/25 Aspirin (Aspirin Low Dose) 81 Mg Tab, 1 TAB PO DAILY 04/07/25 Atorvastatin Calcium (ATORVASTATIN CALCIUM) 80 Mg Tab, 1 TAB PO DAILY 04/07/25 Valsartan (Valsartan) 320 Mg Tab, 1 TAB PO DAILY 04/07/25 Carvedilol (Carvedilol) 12.5 Mg Tab, 1 TAB PO BID 04/07/25 Glipizide (Glipizide) 10 Mg Tab, 1 TAB PO BID 04/07/25 Home Meds Home medications reviewed. Current Medications Current Medications Medications (Trade) Dose Ordered Sig/Ryley Route PRN Reason Start Time Stop Time Status Last Admin Aspirin 81 mg DAILY PO 04/08/25 10:00 04/08/25 10:40 Atorvastatin Calcium (Lipitor) 80 mg HS PO 04/07/25 22:00 Carvedilol (Coreg Tablet) 12.5 mg BIDWM PO 04/07/25 22:00 04/08/25 10:41 Valsartan (Diovan) 320 mg DAILY PO 04/08/25 10:00 04/08/25 10:41 Clopidogrel Bisulfate (Plavix) 75 mg DAILY PO 04/08/25 10:00 04/08/25 10:40 Diagnostic Test (Pha) (Accu-Chek Comfort Curve T) 1 strip ACHS 04/07/25 22:00 04/08/25 11:29 Insulin Human Regular (InsuLIN R) ACHS SC 04/07/25 22:00 04/08/25 11:58 Dextrose 50 ml UD PRN IV Blood Sugar LESS THAN 60 04/07/25 19:30 Ondansetron HCl (Zofran) 4 mg Q4HP PRN IV NAUSEA / VOMITING 04/07/25 19:30 Acetaminophen (Tylenol Tablet) 650 mg Q6HP PRN PO PAIN SCALE 1-3 OR TEMP>100.4 04/07/25 19:30 Nitroglycerin (Ntrostat Sublingual) 0.4 mg Q5MINP PRN SL FOR CHEST PAIN 04/07/25 19:30 Morphine Sulfate 2 mg Q30M PRN IV FOR CHEST PAIN 04/07/25 19:30 Metoprolol Tartrate (Lopressor Tablet) 25 mg BID PO 04/08/25 22:00 Cancel Hydralazine HCl (Apresoline Injection) 10 mg Q6HP PRN IV SBP>160 or DBP>105 04/08/25 13:15 04/08/25 14:23 Review of Systems Constitutional: No symptom reported Ears, Nose, & Throat: No symptom reported Eyes: No symptom reported Neurological: No symptoms reported Pulmonary/Respiratory: SOB Cardiovascular: Chest pain Gastrointestinal: No symptom reported Genitourinary: No symptom reported Musculoskeletal: No symptom reported Skin: No symptom reported Psychiatric: No symptom reported Endocrine: No symptom reported Hemotologic/Lymphatic: No symptom reported Vital Signs Vital Signs Date Time Temp Pulse Resp B/P (MAP) Pulse Ox O2 Delivery O2 Flow Rate FiO2 04/08/25 14:23 179/105 04/08/25 13:00 98.0 75 16 98 98.0 04/07/25 21:32 Room Air Physical Exam General Appearance: Cooperative. Well developed. Morbidly obese. In no acute distress Head Exam: Normal inspection Neck Exam: Normal inspection. Non-tender. Normal alignment Pulmonary/Respiratory: Chest non-tender. Clear bilateral breath sounds Cardiovascular/Chest: Regular rate and rhythm. S1, S2. Sinus rhythm with nonspecific lateral T-wave changes. No murmurs. No JVD. Peripheral Pulses: 2+ Radial (R). 2+ Radial (L). 2+ Pedal (R). 2+ Pedal (L) Abdominal Exam: Normal bowel sounds. Soft. Nontender. No hepatospenomegaly. No masses Ankle Exam: Negative ankle edema Lower extremities: Negative lower extremity edema Neuro/Mental Status: A&O x4. Coherent Thoughts/Psych: Normal thought pattern. Appropriate mood and affect. Good judgement and insight Appearance: In no acute distress Skin Exam: Normal inspection. Normal color. Warm. Dry Labs/Diagnostic Data Labs Test 04/08/25 11:31 04/08/25 07:24 04/07/25 14:05 04/07/25 13:10 Range/Units POC Glucose 170 H 70-106 mg/dl Sodium Level 143 136-145 mmol/L Potassium Level 3.9 3.5-5.1 mmol/L Chloride Level 107 98-107 mmol/L Carbon Dioxide Level 27 20-31 mmol/L Anion Gap 9 5-15 Blood Urea Nitrogen 23 9-23 mg/dL Creatinine 1.17 0.700-1.30 mg/dL Glomerular Filtration Rate Calc 77 >90 mL/min BUN/Creatinine Ratio 19.7 10.0-20.0 Serum Glucose 98 74-106 mg/dL Calcium Level 9.3 8.7-10.4 mg/dL Triglycerides Level 89 < 150 mg/dL Cholesterol Level 114 < 200 mg/dL LDL Cholesterol 74 < 100 mg/dL HDL Cholesterol 27 L 40-59 mg/dL Thyroid Stimulating Hormone (TSH) 1.41 0.55-4.78 uIU/mL Troponin I High Sensitivity 5 </=54 ng/L White Blood Count 4.5 4.4-10.8 10^3/uL Red Blood Count 5.19 4.5-5.90 10^6/uL Hemoglobin 14.1 13.5-17.5 g/dL Hematocrit 42.7 41.0-53.0 % Mean Corpuscular Volume 82.2 80.0-100.0 fL Mean Corpuscular Hemoglobin 27.2 L 28.0-32.0 pg Mean Corpuscular Hemoglobin Concent 33.1 32.0-36.0 g/dL Red Cell Distribution Width 14.8 H 11.8-14.3 % Platelet Count 200 140-450 10^3/uL Mean Platelet Volume 11.1 H 6.9-10.8 fL Neutrophils (%) (Auto) 69.8 37.0-80.0 % Lymphocytes (%) (Auto) 21.7 10.0-50.0 % Monocytes (%) (Auto) 7.3 0.0-12.0 % Eosinophils (%) (Auto) 0.8 0.0-7.0 % Basophils (%) (Auto) 0.4 0.0-2.0 % Neutrophils # (Auto) 3.1 1.6-8.6 10 ^3/uL Lymphocytes # (Auto) 1.0 0.4-5.4 10 ^3/uL Monocytes # (Auto) 0.3 0-1.3 10 ^3/uL Eosinophils # (Auto) 0 0-0.8 10 ^3/uL Basophils # (Auto) 0 0-0.2 10 ^3/uL Nucleated Red Blood Cells 0.1 % B-Type Natriuretic Peptide 44.59 0-100 pg/mL Assessment Unstable angina rule out coronary artery disease [place] compensated HFmrEF, NYHA Class II Insulin-dependent diabetes mellitus History of CVAs x2 (on DAPT) Hypertension Dyslipidemia Morbid obesity Plan/Recommendation (Dr. Love) Transthoracic echocardiogram revealed LVEF 45% with a hypokinetic apex and mild left ventricular hypertrophy. Given TTE results, clinical presentation, ECG changes, and risk factors, the patient is scheduled for a cardiac catheterization and coronary angiogram on 04/09/[address] Love. All risks and benefits of the procedure were discussed with the patient who agrees to proceed with intervention. All questions answered. In the meantime, continue lipid lowering agent, dual antiplatelet therapy, GDMT for HFmrEF. Further orders per clinical course. Thank you for allowing us to participate in this patient's care. Please call if you have any questions or concerns. This medical document was created using an electronic medical record system with voice recognition software and computerized dictation system. Although this document has been carefully reviewed, there might still be some phonetic and typographical errors. Occasional wrong-word or ``sound-alike substitutions may have occurred due to the inherent limitations of voice recognition software. These areas are purely typographical due to imperfections of the software programs and do not reflect any compromise in the patient's medical care. Please read the chart carefully and recognize, using context, where these substitutions have occurred. Plan discussed with: Patient, Other NYHA Physical activity limitations: Class2(Slight)fatigue,sob (palpitatns, angina w activityv) Date of Service: Apr 08, 2025 Billing Provider: GUANAKO ISIDRO Cardiology Common Codes: 93686-KUYCCSF INP/OBS CARE (High) GUANAKO ISIDRO Apr 08, 2025 16:07
[2025-04-08 17:38] LABS: Chloride 104 mmol/L (98-107); Potassium 3.8 mmol/L (3.5-5.1); Sodium 141 mmol/L (136-145)
[2025-04-08 17:39] LABS: Anion Gap 10 (5-15); Calcium 9.7 mg/dL (8.7-10.4); Carbon Dioxide 27 mmol/L (20-31)
[2025-04-08 17:44] LABS: BUN/Creatinine Ratio 21.2 (10.0-20.0); Blood Urea Nitrogen 22 mg/dL (9-23)
[2025-04-08 17:45] LABS: Glucose 112 mg/dL (74-106); Magnesium 2.0 mg/dL (1.6-2.6)
[2025-04-08 18:00] LABS: Triglycerides 112 mg/dL (< 150)
[2025-04-08 18:01] LABS: Cholesterol 129 mg/dL (< 200)
[2025-04-08 18:38] LABS: HDL Cholesterol 29 mg/dL (40-59)
[2025-04-08] MEDS ORDERED: METOPROLOL TARTRATE 25 MG TAB PO SCH (22:00)
[2025-04-09] VITALS (15 sets, daily range): BP systolic 135–183; BP diastolic 71–108; PULSE 76–95; RESP 12–21; TEMP 97.9–98.7; O2SAT 94–99
[2025-04-09 06:13] LABS: Anion Gap 10 (5-15); Carbon Dioxide 26 mmol/L (20-31); Chloride 104 mmol/L (98-107); Potassium 3.7 mmol/L (3.5-5.1); Sodium 140 mmol/L (136-145)
[2025-04-09 06:15] LABS: Calcium 8.8 mg/dL (8.7-10.4); Hematocrit 39.2 % (41.0-53.0); Hemoglobin 13.0 g/dL (13.5-17.5); Mean Corpuscular Hemoglobin 27.2 pg (28.0-32.0); Mean Corpuscular Volume 81.7 fL (80.0-100.0); Nucleated Red Blood Cells % 0.2 %
[2025-04-09 06:19] LABS: BUN/Creatinine Ratio 18.5 (10.0-20.0); Blood Urea Nitrogen 17 mg/dL (9-23)
[2025-04-09 06:25] LABS: Glucose 112 mg/dL (74-106)
[2025-04-09 06:32] LABS: INR 1.11 (0.9-1.15); Partial Thromboplastin Time 31.2 SEC (24.5-34.5); Prothrombin Time 11.6 sec (9.3-11.8)
[2025-04-09] MEDS: EMPAGLIFLOZIN 10 MG TAB PO SCH (10:00)
--- NOTE | 2025-04-09 10:49 | DVHPN2 ---
Subjective The patient is seen and examined at bedside. The patient is still complain of chest pain. The patient schedule for cardiac cath today. however, he want me to explains to him what is cardiac cath procedure. Reviewed: Care Plan, H&P, Labs, Medications, Previous Orders, Radiology Changes from previous H/P or p: No Changes Objective Vitals Vital Signs Date Time Temp Pulse Resp B/P (MAP) Pulse Ox O2 Delivery O2 Flow Rate FiO2 04/09/25 09:00 98.6 77 18 162/91 (114) 99 98.6 04/09/25 08:00 Room Air* 0 21 Intake/Output Intake and Output 04/09/25 07:00 Intake Total 250 ml Balance 250 ml Intake Oral 250 ml # Voids 2 General Appearance: Alert, Oriented X3, Cooperative, No acute distress HEENT: Atraumatic, PERRLA, EOMI, Mucous membr. moist/pink Neck: Supple Lungs: Clear to auscultation, Normal air movement Cardiovascular: Regular rate, Normal S1, Normal S2, No murmurs, Gallops, Rubs Abdomen: Normal bowel sounds, Soft, No tenderness Neuro: Other (Right hemiparesis due to history of CVA) Psych/Mental Status: Mental status NL Medications Current Medications Medications Dose Ordered Sig/Ryley Route Start Time Stop Time Status Last Admin Dose Admin Aspirin 81 mg DAILY PO 04/08/25 10:00 04/08/25 10:40 81 MG Atorvastatin Calcium 80 mg HS PO 04/07/25 22:00 04/08/25 22:34 80 MG Carvedilol 12.5 mg BIDWM PO 04/07/25 22:00 04/09/25 08:43 12.5 MG Valsartan 320 mg DAILY PO 04/08/25 10:00 04/09/25 08:42 320 MG Clopidogrel Bisulfate 75 mg DAILY PO 04/08/25 10:00 04/08/25 10:40 75 MG Diagnostic Test (Pha) 1 strip ACHS 04/07/25 22:00 04/09/25 06:13 1 STRIP Insulin Human Regular ACHS SC 04/07/25 22:00 04/08/25 22:39 4 UNITS Dextrose 50 ml UD PRN IV 04/07/25 19:30 Ondansetron HCl 4 mg Q4HP PRN IV 04/07/25 19:30 Acetaminophen 650 mg Q6HP PRN PO 04/07/25 19:30 Nitroglycerin 0.4 mg Q5MINP PRN SL 04/07/25 19:30 Morphine Sulfate 2 mg Q30M PRN IV 04/07/25 19:30 Metoprolol Tartrate 25 mg BID PO 04/08/25 22:00 Cancel Hydralazine HCl 10 mg Q6HP PRN IV 04/08/25 13:15 04/08/25 14:23 10 MG Empaglifozin 10 mg DAILY PO 04/09/25 10:00 Laboratory Results Laboratory Tests 04/09/25 05:43 Chemistry Test 04/08/25 16:45 04/09/25 05:43 Calcium Level 9.7 mg/dL (8.7-10.4) 8.8 mg/dL (8.7-10.4) Magnesium Level 2.0 mg/dL (1.6-2.6) Coagulation Test 04/09/25 05:43 Prothrombin Time 11.6 sec (9.3-11.8) Prothrombin Time INR 1.11 (0.9-1.15) Activated Partial Thromboplast Time 31.2 SEC (24.5-34.5) Lipid panel Test 04/08/25 16:45 Cholesterol Level 129 mg/dL (< 200) HDL Cholesterol 29 mg/dL (40-59) L Triglycerides Level 112 mg/dL (< 150) HgA1c, TSH Test 04/08/25 16:45 Thyroid Stimulating Hormone (TSH) 2.22 uIU/mL (0.55-4.78) Labs and/or images reviewed: Labs reviewed by me Assessment/Plan Assessment/Plan Chest pain possible secondary to unstable angina Diabetes mellitus Hypertension Morbid obesity History of CVA with right-sided hemiparesis Continuing current management Continuing with sliding scale insulin Because the patient is still have chest pain and history of CVA, no workup at [facility] one week ago accepted echo, weave defect charting clerk will do cardiac cath today. Explain in length with patient how the procedure will be done, including detail of how we look at the vessel. The patient verbally understand and agree with procedure. Continuing hypertensive medication. We will add hydralazine 10 mg IV q.6 hours p.r.n. for systolic greater than 160 or diastolic greater than 100 This medical document was created using an electronic medical record system with M*M [employer] direct computerized dictation system. Although this document has been carefully reviewed, there may still be some phonetic and typographical errors. These areas are purely typographical due to imperfections of the software programs, and do not reflect any compromise in the patient's medical care. Plan discussed with: Patient My Orders Orders - DANN SOTO MD Procedure Category Date Status Time Hydralazine Injection PHA 04/08/25 In Process (Apresoline Inject 13:15 * Cardiology Consult CONS 04/08/25 Transmitted 13:13 Mrsa Screen TAPAN 04/09/25 In Process 07:53 Date of Service: Apr 09, 2025 Billing Provider: DANN SOTO MD Common Visit Codes: [id number] INP/OBS CARE(HIGH) DANN SOTO MD Apr 09, 2025 10:49
[2025-04-09] MEDS: IODIXANOL 320MG/ML 100ML BTL IV ONE (19:51)
[2025-04-09] MEDS: MIDAZOLAM HCL 2MG/2ML 2ml VIAL (1mg/ml) ONE (19:56)
[2025-04-09] MEDS: VERAPAMIL 2.5MG/ML INJ 2ML VIAL IV ONE (19:56)
[2025-04-09] MEDS: SODIUM CHL 0.9% 0 ML ONE (19:56)
[2025-04-09] MEDS: HEPARIN SODIUM (PORCINE) 5000 UNITS/ML 1ML VIAL ONE (19:56)
[2025-04-09] MEDS: ANGIOMAX 250 MG VIAL IV ONE (19:56)
[2025-04-09] MEDS: LIDOCAINE 2%HCL (LOCAL ANESTH.) INJ 20ML MDV ONE (19:56)
[2025-04-09] MEDS: fentaNYL CITRATE 100 MCG/2 ML VL ONE (19:56)
--- NOTE | 2025-04-09 21:16 | DVHOP2 ---
Operative Report - 2 Report Details Date: 04/09/25 Preop Diagnosis: Cardiomyopathy. CAD. Postop Diagnosis: Mild cardiomyopathy Surgeon: Cesilia Love MD Anesthesiologist: Conscious sedation Anesthesia: Mac, Local Consent: The patient was informed of the risks and benefits of the procedure. These include but are not limited to complications of anesthesia, postoperative infection, incomplete relief of symptoms, recurrence of symptoms, damage to bloo d vessels, nerves and tendons, deep venous thrombosis, pulmonary embolism and possible need for repeat surgery in the future. Complications: No complications Findings: Mild cardiomyopathy Indications for Surgery: Cardiomyopathy chest pain. History of CVA Name of Procedure Performed Left heart catheterization. Bilateral cine coronary angiography. Left ventriculography. Procedure Details Procedure Details: Prior local anesthesia with 2% lidocaine to the right wrist and full informed consent obtained the patient was prepped and draped in usual fashion followed by placement of a six Pakistani sheath into the radial artery through which a JL3 five was used to cannulate the left main. A JR4 was used to cannulate the RCA and a pigtail catheter was used for ventriculography. Complications. Hemodynamics: Aortic blood pressure was 130/70 end-diastolic pressure of 13. There was no gradient across the aortic valve on pullback. Coronary anatomy: The RCA is a large dominant vessel. It has a distal 20-30% stenosis. Posterolateral branches and PDA are within normal limits. Left main is large and normal. Left anterior descending is a large vessel it is normal in its proximal mid and distal segments. Two diagonals are free of significant disease circumflex is large with two obtuse marginal branches and large posterolateral branch that is normal. Ventriculography in the HARTMAN projection shows an EF of 45-50% with global hypokinesis. Impression: Normal left ventricular end-diastolic pressure at rest. Mildly decreased left ventricular ejection fraction. No significant coronary artery disease. Recommendations: Continue medical therapy and risk factor modification. Condition Good Disposition Still a Patient Date of Service: Apr 09, 2025 Billing Provider: CESILIA LOVE Sr., MD Cardiology Common Codes: 45603-[id number] INP/OBS CARE (High) Cardiology Procedure Codes: 00203-ZREC ADD CORONARY BRANCH, 52211-YYJB ADD COR ART/BRNCH/GRFT, 21548-BSXO HEART CATH W/INTRA INJ CESILIA LOVE Sr., MD Apr 09, 2025 21:16
[2025-04-10 01:01] VITALS: BP 139/85; PULSE 87; RESP 20; TEMP 98.2; O2SAT 96
[2025-04-10] MEDS: ONDANSETRON HCL 4 MG/2 ML VIAL IV PRN (01:55)
[2025-04-10] MEDS: AMIODARONE BOLUS KIT 100 ML IV ONE ×2 (03:26→03:27)
[2025-04-10] MEDS: AMIODARONE 360mg/200mL PREMIX 200 ML IV ONE ×2 (03:26→03:36)
[2025-04-10 03:36] VITALS: BP 106/67; PULSE 71
[2025-04-10 05:00] VITALS: BP 100/84; PULSE 96; RESP 18; O2SAT 94
[2025-04-10 07:58] LABS: Alanine Aminotransferase 17 U/L (7-40); Albumin 4.1 g/dL (3.2-4.8); Anion Gap 12 (5-15); BUN/Creatinine Ratio 15.5 (10.0-20.0); Bilirubin, Total 0.5 mg/dL (0.2-1.0); Blood Urea Nitrogen 18 mg/dL (9-23); Calcium 8.9 mg/dL (8.7-10.4); Carbon Dioxide 23 mmol/L (20-31); Chloride 102 mmol/L (98-107); Sodium 137 mmol/L (136-145); Total Protein 7.1 g/dL (5.7-8.2)
[2025-04-10 08:00] VITALS: PULSE 57; PULSE 81; RESP 18; O2SAT 98
[2025-04-10 08:00] LABS: Alkaline Phosphatase 123 U/L (46-116); Glucose 170 mg/dL (74-106); Potassium 5.2 mmol/L (3.5-5.1)
[2025-04-10 08:31] VITALS: BP 132/74; PULSE 63; RESP 18; TEMP 98.5; O2SAT 96
[2025-04-10] MEDS: AMIODARONE 360mg/200mL PREMIX 200 ML IV SCH (09:30)
--- NOTE | 2025-04-10 11:16 | DVHDS2 ---
Discharge Summary Date of Admission Apr 07, 2025 at 19:20 Date of Discharge: Apr 10, 2025 Admitting Diagnosis Chest pain possible secondary to unstable angina Diabetes mellitus Hypertension Morbid obesity History of CVA with right-sided hemiparesis Labs/Diagnostic Data: Laboratory Results Test 04/10/25 11:02 04/10/25 06:55 04/09/25 05:43 04/08/25 16:45 POC Glucose 133 mg/dl (70-106) Sodium Level 137 mmol/L (136-145) Potassium Level 5.2 mmol/L (3.5-5.1) Chloride Level 102 mmol/L (98-107) Carbon Dioxide Level 23 mmol/L (20-31) Anion Gap 12 (5-15) Blood Urea Nitrogen 18 mg/dL (9-23) Creatinine 1.16 mg/dL (0.700-1.30) Glomerular Filtration Rate Calc 78 mL/min (>90) BUN/Creatinine Ratio 15.5 (10.0-20.0) Serum Glucose 170 mg/dL (74-106) Calcium Level 8.9 mg/dL (8.7-10.4) Total Bilirubin 0.5 mg/dL (0.2-1.0) Aspartate Amino Transferase (AST) 38 U/L (13-40) Alanine Aminotransferase (ALT) 17 U/L (7-40) Alkaline Phosphatase 123 U/L (46-116) Total Protein 7.1 g/dL (5.7-8.2) Albumin 4.1 g/dL (3.2-4.8) White Blood Count 4.5 10^3/uL (4.4-10.8) Red Blood Count 4.79 10^6/uL (4.5-5.90) Hemoglobin 13.0 g/dL (13.5-17.5) Hematocrit 39.2 % (41.0-53.0) Mean Corpuscular Volume 81.7 fL (80.0-100.0) Mean Corpuscular Hemoglobin 27.2 pg (28.0-32.0) Mean Corpuscular Hemoglobin Concent 33.2 g/dL (32.0-36.0) Red Cell Distribution Width 14.5 % (11.8-14.3) Platelet Count 179 10^3/uL (140-450) Mean Platelet Volume 10.6 fL (6.9-10.8) Neutrophils (%) (Auto) 63.2 % (37.0-80.0) Lymphocytes (%) (Auto) 25.4 % (10.0-50.0) Monocytes (%) (Auto) 9.2 % (0.0-12.0) Eosinophils (%) (Auto) 1.6 % (0.0-7.0) Basophils (%) (Auto) 0.6 % (0.0-2.0) Neutrophils # (Auto) 2.8 10 ^3/uL (1.6-8.6) Lymphocytes # (Auto) 1.1 10 ^3/uL (0.4-5.4) Monocytes # (Auto) 0.4 10 ^3/uL (0-1.3) Eosinophils # (Auto) 0.1 10 ^3/uL (0-0.8) Basophils # (Auto) 0 10 ^3/uL (0-0.2) Nucleated Red Blood Cells 0.2 % Prothrombin Time 11.6 sec (9.3-11.8) Prothrombin Time INR 1.11 (0.9-1.15) Activated Partial Thromboplast Time 31.2 SEC (24.5-34.5) Magnesium Level 2.0 mg/dL (1.6-2.6) C-Reactive Protein High Sensitivity 1.38 mg/dL (<1.0) Triglycerides Level 112 mg/dL (< 150) Cholesterol Level 129 mg/dL (< 200) LDL Cholesterol 85 mg/dL (< 100) HDL Cholesterol 29 mg/dL (40-59) Thyroid Stimulating Hormone (TSH) 2.22 uIU/mL (0.55-4.78) Test 04/08/25 07:24 04/07/25 14:05 04/07/25 13:10 Hemoglobin A1c 8.0 % A1C (<5.7) Troponin I High Sensitivity 5 ng/L (</=54) B-Type Natriuretic Peptide 44.59 pg/mL (0-100) Other Laboratory Tests 04/10/25 06:55 04/09/25 05:43 Brief Hx & Hospital Course: This is a 45 years old male with past medical history of hypertension, diabetes, hyperlipidemia, CVA came into emergency department with history of four days left-sided chest pain. He described his chest pain at pressure-like pain radiating to his left upper arm and associated with shortness for breath and nausea. The patient denied any cough or fever. The patient was admitted. Troponin level is negative. EKG showed no change. The patient remained to have chest pain. Facility Service Associate see the patient. Echo was done. It showed lvef 45%. [place] is hypokinetic, mild lvh, left atrium enlarged, no severe valve abnormalities noted. The patient subsequently had cardiac catheterization done which showed: Normal left ventricular end-diastolic pressure at rest. Mildly decreased left ventricular ejection fraction. No significant coronary artery disease. The shearer screen measurer and trimmer recommended medical management. The patient did not have anymore chest pain today. I am discharge the patient home today. Advised the patient to follow up with primary care physician 1-2 weeks. Activity as tolerated. Diet low-salt low-cholesterol diet Physical exam: HEENT: Normocephalic atraumatic pupils equal react to light and accommodation. Extraocular muscles intact, conjunctiva pink, oropharynx moist, no thrush, no exudate. Lymphatic: No lymphadenopathy Cardiovascular exam: S1, S2 was heard. No murmurs, rubs, gallops Lung: Clear on auscultation bilaterally, no wheeze, rale, rhonchi. GI: Abdominal soft, nondistended, nontenderness, positive bowel sounds. Extremity: No crepitus, cyanosis, edema. Pedal pulses present bilateral. Full range of motion. Skin: Normal turgor, no rash. Psych: Alert, oriented x3. Neurology: No focal deficits, cranial nerve II to XII grossly intact. This medical document was created using an electronic medical record system with M*M [employer] direct computerized dictation system. Although this document has been carefully reviewed, there may still be some phonetic and typographical errors. These areas are purely typographical due to imperfections of the software programs, and do not reflect any compromise in the patient's medical care. Condition at Discharge: Stable Final Diagnosis/Problems List Chest pain possible secondary to unstable angina Diabetes mellitus Hypertension Morbid obesity History of CVA with right-sided hemiparesis Mild cardiomyopathy Discharge Disposition: Home Discharge Instruct/Medications Scheduled Aspirin (Aspirin Low Dose), 1 TAB PO DAILY, (Reported) Atorvastatin Calcium (Atorvastatin Calcium), 1 TAB PO DAILY, (Reported) Carvedilol (Carvedilol), 1 TAB PO BID, (Reported) Clopidogrel Bisulfate (Clopidogrel), 1 TAB PO DAILY, (Reported) Glipizide (Glipizide), 1 TAB PO BID, (Reported) Insulin Glargine-Yfgn (Insulin Glargine), 25 UNIT SC DAILY, (Reported) Valsartan (Valsartan), 1 TAB PO DAILY, (Reported) Discharge Statement: "Patient was advised to return to the ER or call 911 if any headaches, dizziness, shortness of breath, chest pain, abdominal pain, bleeding, fevers, or worsening of medical condition. Patient was counseled about treatment plan, medications, possible side effects, patientverbalized understanding. All questions were answered to the best of my ability. This discharge took greater then 30 minutes in planning, reviewing documentation, counseling the patient, and discussing with other team members." ASSESSMENT ASSESSMENT Assessment Mild cardiomyopathy Date of Service: Apr 10, 2025 Billing Provider: DANN SOTO MD Common Visit Codes: 39786-LRQ/OBS DISCH DAY >30min DANN SOTO MD Apr 10, 2025 11:16
--- NOTE | 2025-04-10 11:34 | ECG ---
[facility] Test Date: 2025-04-10 Test Time: 02:49:44 Pat Name: KRYSTEN GARCIA Department: Room: 0223T B Gender: M Financial Sales Associate: PADMAJA : 1980 Requested By: CESILIA BOOKER Order Number: [id number] Reading MD: Measurements Intervals [place] Rate: 136 P: 0 AK: 0 QRS: 25 QRSD: 94 T: 244 QT: 317 QTc: 477 Interpretive Statements Atrial fibrillation Anteroseptal infarct, old Borderline repolarization abnormality Please click the below link to view image of tracing.
[2025-04-10 13:00] VITALS: BP 111/63; PULSE 66; RESP 18; TEMP 97.9; O2SAT 98
== END 2025-04-10 15:09 | disposition home or self-care (01) | DRG 287 ==
LOC: ER 11:35 → OVERFLOW 19:20 → TELE-CENTR 04-08 16:43
PROVIDERS: ADMIT Internal Medicine; ATTEND Internal Medicine
PROC: 4A023N7 Measurement of Cardiac Sampling and Pressure, Left Heart, Percutaneous Approach (ICD-10-PCS; principal; 2025-04-09)
PROC: B211YZZ Fluoroscopy of Multiple Coronary Arteries using Other Contrast (ICD-10-PCS; 2025-04-09)
PROC: B215YZZ Fluoroscopy of Left Heart using Other Contrast (ICD-10-PCS; 2025-04-09)
DX: I20.0 Unstable angina (principal); I42.9 Cardiomyopathy, unspecified; I69.351 Hemiplegia and hemiparesis following cerebral infarction affecting right dominant side; Z68.43 Body mass index [BMI] 50.0-59.9, adult; I50.22 Chronic systolic (congestive) heart failure; I11.0 Hypertensive heart disease with heart failure; E11.9 Type 2 diabetes mellitus without complications; E66.01 Morbid (severe) obesity due to excess calories; E78.5 Hyperlipidemia, unspecified; F41.9 Anxiety disorder, unspecified; S90.111A Contusion of right great toe without damage to nail, initial encounter; Z79.4 Long term (current) use of insulin; Z83.3 Family history of diabetes mellitus; Z82.49 Family history of ischemic heart disease and other diseases of the circulatory system; Z82.3 Family history of stroke; Z82.0 Family history of epilepsy and other diseases of the nervous system; Z81.8 Family history of other mental and behavioral disorders; Z80.8 Family history of malignant neoplasm of other organs or systems; Z82.61 Family history of arthritis; Z83.42 Family history of familial hypercholesterolemia; Z83.511 Family history of glaucoma; Z81.1 Family history of alcohol abuse and dependence; W22.8XXA Striking against or struck by other objects, initial encounter; Y92.89 Other specified places as the place of occurrence of the external cause; Y99.8 Other external cause status; Y93.89 Activity, other specified
CPT/HCPCS: 36415; 71045; 73630; 80048; 80053; 80061; 82962; 83036; 83735; 83880; 84443; 84484; 85025; 85610; 85730; 86141; 87081; 93005; 93306; 99152; G0378; J1815; J2250; J2405; Q9967